=== PATIENT | male | born 1980 | race Caucasian/White ===

== ENCOUNTER 2016-07-25 17:52 | Emergency (ER) | payer OTHER ==
[2016-07-25 18:02] VITALS: BP 125/88; PULSE 71; TEMP 98.3; BMI 32.4
--- NOTE | 2016-07-25 19:23 | PDOC ---
History of Present Illness - General Chief Complaint: Eye Problem Stated Complaint: EYE PROBLEM Time Seen by Provider: 07/25/16 18:08 - History of Present Illness Initial Comments: 07/25/16 19:22 CHIEF COMPLAINT: swelling to L eye HISTORY OF PRESENT ILLNESS: 35 yo M with no PMH presents to [facility] with swelling to L eye s/p injury 2 days ago. 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 He states that the first day there was no swelling but he did rub his eye, and over the past two days the eye has become swollen, red, and painful, and he is "worried that I might have rubbed an infection into my eye." Denies change in vision but complains of pain on movement of L eye. PAST MEDICAL HISTORY: Denies past medical history FAMILY HISTORY: Denies SOCIAL HISTORY: Denies tobacco, alcohol, illicit drug use. SURGICAL HISTORY: Denies ALLERGIES: No known drug allergies REVIEW OF SYSTEMS General/Constitutional: Denies fever or chills. Denies weakness, weight change. HEENT: Swelling to L eye, "I can see fine but it hurts when I move my eye left and right." Denies ear pain or discharge. Denies sore throat. Cardiovascular: Denies chest pain or shortness of breath. Respiratory: Denies cough, wheezing, or hemoptysis. Gastrointestinal: Denies nausea, vomiting, diarrhea or constipation. Denies rectal bleeding. Genitourinary: Denies dysuria, frequency, or change in urination. Musculoskeletal: Denies joint or muscle swelling or pain. Denies neck or back pain. Skin and breasts: Denies rash or easy bruising. PHYSICAL EXAM General Appearance: Well-appearing, appropriately dressed. No apparent distress , no intoxication. HEENT: Tenderness on palpation to lateral orbital wall. Erythema and edema surrounding L eye. No change in vision, no diplopia, no blurred vision. normal voice, TMs normal, pharynx normal. No conjunctival pallor. Respiratory/Chest: Lungs CTAB. Cardiovascular: RRR. S1, S2. Integumentary: Appropriate color, dry, warm. No cyanosis, erythema, jaundice or rash Neurologic: sales/marketing II-XII intact. Fully oriented, alert. Appropriate mood/affect. Motor strength 5/5. No appreciable EOM palsy, facial droop or sensory deficit. 07/25/16 19:32 Past History - Past Medical History Allergies/Adverse Reactions: Allergies Allergy/AdvReac Type Severity Reaction Status Date / Time No Known Allergies Allergy Verified 07/25/16 18:03 Home Medications: Ambulatory Orders Azithromycin [Zithromax Tri-Arnav (3 DAYS) -] 500 mg PO DAILY #3 tablet 07/25/16 Oxycodone HCl 5 mg PO TID PRN #10 tablet MDD 3 07/25/16 - Psycho/Social/Smoking Cessation Hx Suicidal Ideation: No Smoking History: Current every day smoker Number of Cigarettes Smoked Daily: 20 Information on smoking cessation initiated: No Hx Alcohol Use: Yes (occasionally) Drug/Substance Use Hx: No *Physical Exam - Vital Signs Last Vital Signs Temp Pulse Resp BP Pulse Ox 98.3 F 71 18 125/88 97 07/25/16 17:57 07/25/16 17:57 07/25/16 17:57 07/25/16 17:57 07/25/16 17:57 ED Treatment Course - RADIOLOGY Radiology Studies Ordered: Category Date Time Status FACIAL BONES CT W/O CONTRAST [CT] Stat CT Scan 07/25/16 18:30 Taken HAND- LEFT [RAD] Stat Radiology 07/25/16 18:30 Taken Medical Decision Making - Medical Decision Making 07/25/16 20:39 35 yo M with hx of diverticulitis and GI bleed presents to fast track with periorbital edema s/p trauma to L eye 3 days ago. -Facial bone CT CT results: Left orbital medial wall slightly depressed fracture with partial opacification of the left ethmoid air cells. Intraorbital air is seen in medial aspect of the orbit, extraconal compartment. No abnormal attenuation or air is seen within the intraconal compartment. Moderate to marked left periorbital soft tissues swelling and air is present extending to the superior orbital margin. Discusssed case with attending MD Melendez. Will rx azithromycin and pain medication with close follow up with ophtho and ENT. Discussed case with MD Forman, who states he will see patient tomorrow morning. He also requests consult with ENT MD Harden. Patient states he has "had a lot of problems taking Naproxen and Tylenol after I had an operation for diverticulitis." Will rx oxycodone for pain. Advised patient to avoid any potential increase of ocular pressure,and to follow up with Drs. Forman and Dereck tomorrow morning; patient verbalized understanding and agrees to plan. 07/26/16 15:08 *DC/Admit/Observation/Transfer Diagnosis at time of Disposition: Medial orbital wall fracture Qualifiers: Encounter type: initial encounter Fracture type: closed Qualified Code(s): S02.80XA - Fracture of other specified skull and facial bones, unspecified side , initial encounter for closed fracture - Discharge Dispostion Disposition: HOME Condition at time of disposition: Stable Admit: No - Prescriptions Prescriptions: Oxycodone HCl 5 mg PO TID PRN #10 tablet MDD 3 PRN Reason: Pain Azithromycin [Zithromax Tri-Arnav (3 DAYS) -] 500 mg PO DAILY #3 tablet - Referrals Referrals: Camilo Jenkins [Primary Care Provider] - Go Harden MD [Staff Physician] - Arnold Forman [Staff Physician] - - Patient Instructions Printed Discharge Instructions: DI for Orbital Fracture Additional Instructions: Please take antibiotics as prescribed. As discussed, you MUST follow up with Drs. Bryan tomorrow; they have been notified and are expecting to see you tomorrow morning. If you need to sneeze or cough, please do so with your mouth open to avoid any increased pressure to your eye. Do not strain to move your bowels. If you experience any change in vision, inability to move your eye , increased swelling or pressure, or any new or worsening symptoms, please return to the ER. - Post Discharge Activity Work/School Note: Back to Work
== END 2016-07-25 20:57 | disposition home or self-care (01) ==
LOC: MERGE 17:52 → JERFT 17:52
DX: S02.32XA Fracture of orbital floor, left side, initial encounter for closed fracture (principal); W20.8XXA Other cause of strike by thrown, projected or falling object, initial encounter; Y93.H3 Activity, building and construction; Y92.61 Building [any] under construction as the place of occurrence of the external cause; Y99.0 Civilian activity done for income or pay
CPT/HCPCS: 70486-TC; 73130-TC-LT; 99281-25

== ENCOUNTER 2016-08-20 03:12 | Emergency (ER) | payer OTHER ==
[2016-08-20 03:38] VITALS: TEMP 97.8; BMI 32.5
[2016-08-20] MEDS ORDERED: OXYCODONE/APAP 5/325MG COMBO TABLET PO ONE (04:18)
[2016-08-20] MEDS ORDERED: OXYCODONE/APAP 5/325MG COMBO TABLET ONE (04:25)
--- NOTE | 2016-08-20 04:35 | PDOC ---
History of Present Illness - General Chief Complaint: Pain Stated Complaint: FACE HURTS Time Seen by Provider: 08/20/16 03:56 History Source: Patient Exam Limitations: No Limitations - History of Present Illness Initial Comments: 08/20/16 04:29 Patient is a 35 year old male with h/o asthma, with recent orbital fx sustained on 3 wks ago. He is scheduled for surgery on 08/28 but states had pain meds x 2 weeks, now taking Tylenol without relief of pain. Patient states has been taking Percocet 10mg. PMD: Dr. Hall PMHX: asthma, PSOCHX: cig 5/day, occ etoh, neg drugs FamHx: noncontributory ALL: NKDA GENERAL/CONSTITUTIONAL: [No fever or chills. No weakness. No weight change.] HEAD, EYES, EARS, NOSE AND THROAT: [No change in vision. No ear pain or discharge. No sore throat, (+) facial pain] CARDIOVASCULAR: [No chest pain or shortness of breath.] RESPIRATORY: [No cough, wheezing, or hemoptysis.] GASTROINTESTINAL: [No nausea, vomiting, diarrhea or constipation. No rectal bleeding.] GENITOURINARY: [No dysuria, frequency, or change in urination.] MUSCULOSKELETAL: [No joint or muscle swelling or pain. No neck or back pain.] SKIN AND BREASTS: [No rash or easy bruising.] NEUROLOGIC: [No headache, vertigo, loss of consciousness, or loss of sensation.] PSYCHIATRIC: [No depression or anxiety.] ENDOCRINE: [No increased thirst. No abnormal weight change.] HEMATOLOGIC/LYMPHATIC: [No anemia, easy bleeding, or history of blood clots.] ALLERGIC/IMMUNOLOGIC: [No hives or skin allergy. No latex allergy.] GENERAL: [The patient is awake, alert, and fully oriented, in no acute distress. ] HEAD: [Normal with no signs of trauma.] EYES: [Pupils equal, round and reactive to light, extraocular movements intact, (+) lid lag left eye, (+) tenderness to the left infraorbital medially and nasal bridge, sclera anicteric, conjunctiva clear.] ENT: [Ears normal, nares patent, oropharynx clear without exudates. Moist mucous membranes.] NECK: [Normal range of motion, supple without lymphadenopathy, JVD, or masses.] LUNGS: [Breath sounds equal, clear to auscultation bilaterally. No wheezes, and no crackles.] HEART: [Regular rate and rhythm, normal S1 and S2 without murmur, rub.] ABDOMEN: [Soft, nontender, normoactive bowel sounds. No guarding, no rebound. No masses.] EXTREMITIES: [Normal range of motion, no edema. No clubbing or cyanosis. No cords, erythema, or tenderness.] NEUROLOGICAL: [Cranial nerves II through XII grossly intact. Normal speech, normal gait.] PSYCH: [Normal mood, normal affect.] SKIN: [Warm, Dry, normal turgor, no rashes or lesions noted.] Past History - Past Medical History Allergies/Adverse Reactions: Allergies Allergy/AdvReac Type Severity Reaction Status Date / Time No Known Allergies Allergy Verified 01/24/16 22:46 Home Medications: Ambulatory Orders Oxycodone HCl/Acetaminophen [Percocet 10-325 mg Tablet] 1 each PO 5XD PRN #20 tablet MDD 6 08/20/16 Asthma: Yes - Immunization History Immunization Up to Date: Yes - Psycho/Social/Smoking Cessation Hx Suicidal Ideation: No Smoking History: Current every day smoker Have you smoked in the past 12 months: Yes Number of Cigarettes Smoked Daily: 5 Information on smoking cessation initiated: No 'Breaking Loose' booklet given: 08/20/16 Hx Alcohol Use: No Drug/Substance Use Hx: No Substance Use Type: None *Physical Exam - Vital Signs Last Vital Signs Temp Pulse Resp BP Pulse Ox 97.8 F 102 H 22 132/93 100 08/20/16 03:31 08/20/16 03:31 08/20/16 03:31 08/20/16 03:31 08/20/16 03:31 ED Treatment Course - Medications Given in the ED: ED Medications Discontinued Medications Generic Name Dose Route Start Last Admin Trade Name Freq PRN Reason Stop Dose Admin Oxycodone/Acetaminophen 2 combo 08/20/16 04:18 08/20/16 04:23 Percocet 5/325 - PO 08/20/16 04:19 2 combo ONCE ONE Administration Medical Decision Making - Medical Decision Making 08/20/16 04:35 Patient is a 35 year old male with h/o asthma, with recent orbital fx sustained on 3 wks ago. Will medicate with Percocet 5mg x 2 tabs Patient still c/o given Toradol 60mg IM 08/20/16 05:31 Patient states pressure pain in the face is resolving I discussed the physical exam findings, ancillary test results and final diagnoses with the patient. I answered all of the patient's questions. The patient was satisfied with the care received and felt comfortable with the discharge plan and treatment plan. The Patient agrees to follow up with the primary care physician within 24-72 hours. *DC/Admit/Observation/Transfer Diagnosis at time of Disposition: Facial pain - Discharge Dispostion Disposition: HOME Condition at time of disposition: Stable - Prescriptions Prescriptions: Oxycodone HCl/Acetaminophen [Percocet 10-325 mg Tablet] 1 each PO 5XD PRN #20 tablet MDD 6 PRN Reason: Severe Pain - Referrals Referrals: Camilo Jenkins [Primary Care Provider] - - Patient Instructions Printed Discharge Instructions: DI for Orbital Fracture Additional Instructions: Your Discharge Instructions: You must call primary care physician within 24 hours to arrange follow-up. Return to the Emergency Department with any new, persistent or worsening symptoms, for fever, chills, SOB, dizziness or any other concerning changes that may occur.
[2016-08-20] MEDS ORDERED: KETOROLAC TROMETHAMINE 30 MG/1 ML VIAL IM ONE (05:06)
[2016-08-20] MEDS ORDERED: KETOROLAC TROMETHAMINE 60 MG/2 ML VIAL ONE (05:09)
[2016-08-20 05:33] VITALS: BP 141/101; PULSE 96
== END 2016-08-20 05:34 | disposition home or self-care (01) ==
LOC: JER 03:12
PROC: 3E0233Z Introduction of Anti-inflammatory into Muscle, Percutaneous Approach (ICD-10-PCS; principal; 2016-08-20)
DX: G89.18 Other acute postprocedural pain (principal); Z87.81 Personal history of (healed) traumatic fracture
CPT/HCPCS: 96372; 99281-25

== ENCOUNTER 2016-08-29 06:14 | Day surgery (SDC) | payer OTHER ==
[2016-08-28 17:44] VITALS: BMI 32.5
--- NOTE | 2016-08-28 19:07 | PREOP ---
DATE OF ADMISSION: 06/29/2016 DATE OF SURGERY: 06/29/2016 ADMISSION DIAGNOSIS: Nasal septal fracture with displacement and nasal obstruction, inferior turbinate hypertrophy. HISTORY OF PRESENT ILLNESS: This 35-year-old male sustained blunt trauma to the face on July 24, 2016. He was working in his home when a metal drill fell off a ladder, and then bounced off stairs and struck his face. He sustained a left medial orbital wall fracture as well as nasal septal fracture. He was evaluated at [facility] emergency department, where CT scan demonstrated the fracture. He was discharged home. He had his eye evaluated and cleared by Dr. Arnold Forman. He has complained of severe nasal obstruction on the right side ever since the injury. Examination demonstrates a markedly displaced nasal septal fracture, and he is now brought to surgery for treatment. PAST MEDICAL HISTORY: Also includes nasal allergies which are worse in the springtime, and he has used Claritin D as needed. He has had a history of asthma and allergies. PAST SURGICAL HISTORY: Negative. PREVIOUS ANESTHESIA: None. BLEEDING HISTORY: Negative. FAMILY HISTORY: Negative for bleeding or anesthesia problems. ALLERGIES TO MEDICATIONS: None known. PRESENT MEDICATIONS: Include Qvar, Flovent, and oxycodone. Patient does have a history of intermittent smoking. PHYSICAL EXAMINATION: General: Patient is well developed male, in no acute distress. HEENT: Head is normal. Eyes are clear. Extraocular movements are intact and full. The nose has a relatively straight dorsum. Intranasal examination demonstrates a severely deviated nasal septum to the right with obstruction. There is moderate hypertrophy of the left inferior turbinate. The remainder of his head, neck examination is unremarkable. DATE: Preoperative labs are pending. CT scan of facial bones demonstrated marked deviation of the septum to the right side, inferior turbinate hypertrophy, as well as the medial orbital wall fracture on the left side. IMPRESSION: Acutely displaced nasal septal fracture with obstruction, left inferior turbinate hypertrophy. PLAN: Open reduction of nasal septal fracture, inferior turbinate resection. INFORMED CONSENT: Patient understands the indications, alternatives, nature of risks and benefits of proposed surgery. Potential complications including but not limited to anesthesia, bleeding, infection, numbness, hole in the septum, reduced sense of smell, some persistent deviation of septum, and recurrence were discussed in detail. He understands and accepts these risks and wishes to proceed with surgery. Questions were answered fully. TRACEY JOHNSON M.D. TANG/[id number] MTDD
[2016-08-29] MEDS ORDERED: LIDOCAINE 1%/EPI 1:100000 (50 ML MULTI DOSE VIAL) ONE (07:21)
[2016-08-29] MEDS ORDERED: COCAINE HCL 4% TOPICAL SOLUTION 4 ML BOTTLE TP ONE ×2 (07:22→08:34)
--- NOTE | 2016-08-29 08:08 | HP ---
History & Physical Update - History History: No Change - Physical Currently as noted:: left upper lid swelling, wheezing - Assessment Currently as noted:: asthma, suboptimal control; stye left upper lid - Plan Currently as noted:: preop breathing rx, outpt consult; warm compress left eye, f/u
[2016-08-29] MEDS ORDERED: ALBUTEROL SO4 0.5 % INH SOLN 2.5 MG/0.5 ML VIAL.NEB. NEB ONE (08:13)
[2016-08-29] MEDS ORDERED: ALBUTEROL SO4 0.083% IH SOL 2.5 MG/3 ML VIAL.NEB. NEB ONE (08:13)
[2016-08-29] MEDS ORDERED: ALBUTEROL SO4 2.5/IPRATROPIUM 0.5 INH SOL 3 ML VIAL.NEB. NEB ONE (08:15)
[2016-08-29] MEDS ORDERED: LIDOCAINE 1%/EPI 1:100000 (50 ML MULTI DOSE VIAL) INF ONE ×2 (08:34)
[2016-08-29] MEDS ORDERED: BACITRACIN 30 GM TUBE TOPICAL OINTMENT ONE (09:32)
[2016-08-29] MEDS ORDERED: TRIMETHOBENZAMIDE HCL 200MG/2ML INJ IM PRN (10:23)
[2016-08-29] MEDS ORDERED: oxyCODONE HCL 5 MG TABLET PO PRN (10:23)
[2016-08-29] MEDS ORDERED: LACTATED RINGERS SOLUTION 1,000 ML IV SCH ×2 (10:30→11:15)
--- NOTE | 2016-08-29 10:34 | OP ---
Operative Note - Note: Operative Date: 08/29/16 ([id number]) Pre-Operative Diagnosis: nasal septal fracture with severe displacement and airway obstruction. inferior turbinate hypertrophy Operation: open reduction of nasal septal fracture; submucous resection of left inferior turbinate; right inferior turbinate therapeutic outfracture Findings: nasal septal fracture severely deviated to the right with airway obstruction bony and cartilagenous, angulated maxillary crest, spur impacted floor of nose and right inferior turbinate left inferior turbinate hypertrophy with obstruction Implants: none Post-Operative Diagnosis: Same as Pre-op Surgeon: Go Harden Anesthesiologist/GLOBAL LEAD: Deniz Christian Anesthesia: General Specimens Removed: 1) nasal septal tissue, 2) left inferior turbinate tissue Estimated Blood Loss (mls): 15 Drains & Tubes with Location: none Blood Volume Replaced (mls): 0 Operative Report Dictated: Yes
[2016-08-29] MEDS ORDERED: ONDANSETRON 4 MG/2 ML VIAL IVPUSH PRN (11:07)
[2016-08-29] MEDS ORDERED: PROMETHAZINE HCL 25 MG/1 ML VIAL IVPUSH PRN (11:07)
--- NOTE | 2016-08-29 11:28 | OP ---
DATE OF OPERATION: 08/29/2016 PREOPERATIVE DIAGNOSES: Nasal septal fracture with severe displacement and airway obstruction, inferior turbinate hypertrophy. POSTOPERATIVE DIAGNOSES: Nasal septal fracture with severe displacement and airway obstruction, inferior turbinate hypertrophy. PROCEDURE: Open reduction of nasal septal fracture, submucous resection of left inferior turbinate, right inferior turbinate therapeutic fracture. SURGEON: Go Harden MD ANESTHESIOLOGIST: Aftab Christian MD ANESTHESIA: General via endotracheal tube. INDICATIONS: This 35-year-old male sustained blunt trauma to the face, sustaining left medial orbital wall fracture and nasal septal fracture. He developed significant nasal obstruction following his injury. His vision and eye were checked by an forgeman helper and no operative intervention is recommended for his medial orbital wall fracture. However, because of the severe nasal obstruction which is quite symptomatic he is now brought to surgery for treatment. FINDINGS: Nasal septal fracture with severe displacement to the right and airway obstruction, bony and cartilaginous, angulated maxillary crest, spur impacts the floor of the nose and the right inferior turbinate. Left inferior turbinate hypertrophy with obstruction. PROCEDURE: Patient was brought to the operating room and placed on the operating table in the supine position. General endotracheal anesthesia was induced to a satisfactory level. He was prepped and draped in the usual fashion for surgery. Nasal cavities were inspected. Severe nasal septal deviation to the right was observed. Nasal dorsum was relatively straight. The left nasal cavity was open, but inferior turbinate hypertrophy was seen. Lidocaine with epinephrine was infiltrated into the nasal septum and cocaine 4% pledgets were placed within the nasal cavities. The pledgets were removed. The nasal septum was inspected and the above findings noted. A left nasal septal incision was then created with a 15 blade and a left mucoperichondrial flap was elevated. There was severe angulation of the cartilage with the inferior portion being almost horizontal. The bony/cartilaginous junction was identified and and then bilateral mucoperiosteal flaps were elevated. Significant deviation of the bone to the right side was noted. Deviated bony septum was then removed with the Sher-[place]ola forceps and punch. Excess cartilage below the angulation was then removed with the [place] cartilage knife and the Claire elevator. Deviated maxillary crest was then removed with an osteotome. Hemostasis was achieved with electrocautery. A normal strut of cartilage was preserved for the dorsum and caudal septum. The remaining septum was then scored in a crosshatch fashion in order to release the spring. After these maneuvers, significant improvement in the position of the septum was achieved. Inferiorly, some of the mucosa had contracted around the inferior aspect of the previous spur and this could not be elevated to a more vertical position. A portion was removed with the endoscopic scissors in order to reduce the chance of postoperative synechia. Bone and cartilage were replaced in the pocket to reconstitute the 3rd layer. A tear in the mucosa from the deep concavity of the deformity was then repaired with interrupted chromic sutures. The incision was closed with 4-0 chromic. Attention was then turned to the inferior turbinates. The left inferior turbinate was enlarged. Lidocaine with epinephrine was infiltrated into the turbinate and then incision was created. Turbinate bone was isolated and then removed in a submucous fashion. Remaining turbinate tissue was then cauterized internally and interrupted sutures were used to close the incision. The right inferior turbinate was therapeutically outfractured. There was very thin but floppy inferior aspect. Patient does have a history of allergies. This was left undisturbed in order to minimize the chance of postoperative synechia. Hemostasis was excellent. Folded Telfa gauze was placed within each nasal cavity covered with antibiotic ointment. A moustache dressing was placed. Patient tolerated the procedure well. He was then awakened from general anesthesia and transferred to the PACU in stable condition. Estimated blood loss was 15 mL. He received crystalloid during the procedure. Specimens included nasal septal tissue and left inferior turbinate tissue and were sent to Pathology for routine study. There were no complications. GO HARDEN M.D. TANG/[id number]
[2016-08-29] MEDS ORDERED: oxyCODONE HCL 5 MG TABLET ONE (12:57)
[2016-08-29 14:13] VITALS: TEMP 98.2
[2016-08-29 17:51] VITALS: BP 130/84; PULSE 98
--- NOTE | 2016-08-30 13:27 | PATH ---
Surgical Pathology Report Patient Name: ISABEL ROGERS Med. Rec. #: [id number] /Age/Gender: 1980 (Age: 35) / M Account: [id number] Location: [facility] SURGICAL Taken: 08/29/2016 Received: 08/29/2016 Reported: 08/30/2016 Physicians: Go Harden M.D. Specimen(s) Received A: NASAL SEPTUM B: LEFT ANTERIOR TURBINATE Clinical History Hypertrophy of turbinates, nasal fracture Final Diagnosis A. NASAL SEPTUM, SEPTOPLASTY: BONE AND CARTILAGE WITHOUT SIGNIFICANT PATHOLOGIC CHANGES. FRAGMENTS OF SINONASAL MUCOSA WITH MILD CHRONIC INFLAMMATION AND FIBROSIS. B. LEFT ANTERIOR TURBINATE, RESECTION: FRAGMENT OF SCLEROTIC BONE AND SINONASAL MUCOSA WITH MILD CHRONIC INFLAMMATION AND FIBROSIS. Electronically Signed Tushar Suarez M.D. Gross Description A. Received in formalin labeled "nasal septum" is a 3.5 x 2.5 x 0.4 cm aggregate of morrow fragments of bone and cartilage. A commercial pest control representative portion is submitted in one cassette, following decalcification. B. Received in formalin labeled "left anterior turbinate" is a 1.3 x 1.0 x 0.3 cm portion of morrow-red soft tissue with possible attached cartilage and bone. The specimen is trisected and entirely submitted in one cassette, following decalcification. 08/29/201608/29/2016
== END 2016-08-29 15:00 | disposition home or self-care (01) ==
LOC: JASU-SURG 06:14
PROVIDERS: ATTEND Otolaryngology
PROC: 09TL7ZZ Resection of Nasal Turbinate, Via Natural or Artificial Opening (ICD-10-PCS; 2016-08-29)
PROC: 09SL7ZZ Reposition Nasal Turbinate, Via Natural or Artificial Opening (ICD-10-PCS; 2016-08-29)
PROC: 09SM0ZZ Reposition Nasal Septum, Open Approach (ICD-10-PCS; principal; 2016-08-29 08:00)
DX: S02.2XXA Fracture of nasal bones, initial encounter for closed fracture (principal); X58.XXXA Exposure to other specified factors, initial encounter; Y93.9 Activity, unspecified; Y92.009 Unspecified place in unspecified non-institutional (private) residence as the place of occurrence of the external cause; Y99.9 Unspecified external cause status; J34.3 Hypertrophy of nasal turbinates
CPT/HCPCS: 88302-TC; 88304-TC; 88311-TC; 94760

== ENCOUNTER 2016-11-26 17:36 | Emergency (ER) | payer OTHER ==
[2016-11-26 17:44] VITALS: BP 118/75; PULSE 100; TEMP 98; BMI 32.5
--- NOTE | 2016-11-26 19:36 | PDOC ---
History of Present Illness - General History Source: Patient Exam Limitations: No Limitations - History of Present Illness Initial Comments: 11/26/16 20:06 The patient is a 36 year old male with a past medical history of asthma(takes Qvar and ventolin daily in the mornings) who presents to the emergency department with a complaint of right eye redness, pain and swelling for two days. Patient woke up with the symptoms, denies any trauma. Patinet states the pain is mild. Pain is worse today since yesterday. Patient reports some tearing. Elli fever, chills. Denies visual changes. Denies drainage. Patient is self employed with computers Patient reports tobacoo use <Poli Lentz - Last Filed: 11/26/16 20:06> - General History Source: Patient Exam Limitations: No Limitations <Natacha Clayton - Last Filed: 11/26/16 20:19> - General Chief Complaint: Eye Problem Stated Complaint: EYE PROBLEM Past History <Poli Lentz - Last Filed: 11/26/16 20:06> - Travel Traveled outside of the country in the last 30 days: No Close contact w/someone who was outside of country & ill: No - Past Medical History Asthma: Yes (NO RECENT ATTACK) - Immunization History Immunization Up to Date: Yes - Psycho/Social/Smoking Cessation Hx Suicidal Ideation: No Smoking History: Current every day smoker Have you smoked in the past 12 months: Yes Number of Cigarettes Smoked Daily: 2 Information on smoking cessation initiated: No 'Breaking Loose' booklet given: 08/29/16 Hx Alcohol Use: Yes (OCCAS) Drug/Substance Use Hx: No Substance Use Type: Alcohol Hx Substance Use Treatment: No <Natacha Clayton - Last Filed: 11/26/16 20:19> - Past Medical History Allergies/Adverse Reactions: Allergies Allergy/AdvReac Type Severity Reaction Status Date / Time No Known Allergies Allergy Verified 11/26/16 17:44 Home Medications: Ambulatory Orders Albuterol Sulfate Inhaler - [Ventolin Hfa Inhaler -] 2 inh PO Q6H PRN 08/28/16 Beclomethasone Dipropionate [Qvar] 8.7 gm IH DAILY 08/28/16 Review of Systems - Review of Systems Able to Perform ROS?: Yes Constitutional: No: Chills, Fever HEENTM: Yes: See HPI, Other (eye redness, pain and swelling ) Respiratory: No: Symptoms reported Cardiac (ROS): No: Symptoms Reported ABD/GI: No: Symptoms Reported : No: Symptoms Reported Musculoskeletal: No: Symptoms Reported Integumentary: Yes: See HPI All Other Systems: Reviewed and Negative <Poli Lentz - Last Filed: 11/26/16 20:06> - Review of Systems Able to Perform ROS?: Yes Is the patient limited Latvian proficient: Yes Constitutional: Yes: Symptoms Reported, See HPI, Malaise HEENTM: No: Symptoms Reported Respiratory: Yes: Symptoms reported, See HPI <Sharlene Claytonorah - Last Filed: 11/26/16 20:19> *Physical Exam - Vital Signs Last Vital Signs Temp Pulse Resp BP Pulse Ox 98 F 100 H 18 118/75 98 11/26/16 17:39 11/26/16 17:39 11/26/16 17:39 11/26/16 17:39 11/26/16 17:39 - Physical Exam General Appearance: Yes: Appropriately Dressed, Mild Distress HEENT: positive: Pharynx Normal, Other ( right lid upper lid erythematous and edematous with worse pain and non pointing leision to lateral aspect of lid. Consistent with a Stye . No drainage ). negative: Normal ENT Inspection Neck: positive: Supple. negative: Lymphadenopathy (R), Lymphadenopathy (L) Respiratory/Chest: positive: Lungs Clear Cardiovascular: positive: Regular Rhythm, Regular Rate Gastrointestinal/Abdominal: positive: Soft. negative: Tender Musculoskeletal: positive: Normal Inspection Extremity: positive: Normal Inspection Integumentary: positive: Normal Color, Dry, Warm Neurologic: positive: Fully Oriented, Alert <Poli Lentz - Last Filed: 11/26/16 20:06> - Vital Signs Last Vital Signs Temp Pulse Resp BP Pulse Ox 98 F 100 H 18 118/75 98 11/26/16 17:39 11/26/16 17:39 11/26/16 17:39 11/26/16 17:39 11/26/16 17:39 - Physical Exam General Appearance: Yes: Appropriately Dressed, Apparent Distress <Sharlene Claytonorah - Last Filed: 11/26/16 20:19> Medical Decision Making - Medical Decision Making 11/26/16 20:19 The scribe's documentation has been prepared under my direction and personally reviewed by me in its entirety. I confirm that the note above accurately reflects all work, treatment, procedures, and medical decision making performed by me. <Natacha Clayton - Last Filed: 11/26/16 20:19> *DC/Admit/Observation/Transfer - Attestations Scribe Attestion: 11/26/16 20:14 Documentation prepared by Poli Lentz, acting as medical records technician for Emergency Dept ,Physician, CINNA[employer] GRINDER <Poli Lentz - Last Filed: 11/26/16 20:06> - Discharge Dispostion Admit: No <Natacha Clayton - Last Filed: 11/26/16 20:19> Diagnosis at time of Disposition: Hordeolum external Qualifiers: Laterality: right Eyelid: upper Qualified Code(s): H00.011 - Hordeolum externum right upper eyelid - Discharge Dispostion Disposition: HOME Condition at time of disposition: Stable - Referrals Referrals: Camilo Jenkins [Primary Care Provider] - Zev Lange [Staff Physician] - - Patient Instructions Printed Discharge Instructions: DI for Blepharitis Additional Instructions: Rest, avoid rubbing eyes Warm moist Soaks stye as often as possible until stye comes to head and drained May use erythromycin ointment to keep lid lubricated and eye lubricated Followup with ophthalmology or private physician as needed - Post Discharge Activity
[2016-11-26] MEDS ORDERED: ERYTHROMYCIN 0.5% OPHTHALMIC OINTMENT 3.5 GM TUBE ONE (20:06)
[2016-11-26] MEDS ORDERED: ERYTHROMYCIN 0.5% OPHTHALMIC OINTMENT 3.5 GM TUBE OS ONE (20:15)
== END 2016-11-26 20:22 | disposition home or self-care (01) ==
LOC: JERFT 17:36
DX: H00.011 Hordeolum externum right upper eyelid (principal)
CPT/HCPCS: 99281-25

== ENCOUNTER 2017-08-09 12:56 | Emergency (ER) | payer OTHER ==
[2017-08-09 13:09] VITALS: BMI 30.9
[2017-08-09] MEDS ORDERED: ACETAMINOPHEN 1000 MG/100 ML VIAL (NON FORMULARY) IVPB ONE (13:47)
[2017-08-09] MEDS ORDERED: SODIUM CHLORIDE 0.9% 1000 ML INFUS.BAG IV ONE (13:47)
--- NOTE | 2017-08-09 13:54 | PDOC ---
History of Present Illness - General Chief Complaint: Pain, Acute Stated Complaint: ABD PAIN Time Seen by Provider: 08/09/17 13:37 History Source: Patient Exam Limitations: No Limitations - History of Present Illness Initial Comments: 08/09/17 13:52 The patient is a 36M with a PMH of possible diverticulosis who presents to the ER with complaints of abdominal pain. The patient states that he has sharp, b/l upper quadrant pain and down his L anterior abdomen, which has been present for 2 days, and is intermittent. The pain is associated with a bout of bloody diarrhea which he had last night. He denies any fever, chills, nausea, vomiting. Past History - Past Medical History Allergies/Adverse Reactions: Allergies Allergy/AdvReac Type Severity Reaction Status Date / Time No Known Allergies Allergy Verified 08/09/17 13:05 Home Medications: Ambulatory Orders Albuterol Sulfate Inhaler - [Ventolin Hfa Inhaler -] 2 inh PO Q6H PRN 08/28/16 Beclomethasone Dipropionate [Qvar] 8.7 gm IH DAILY 08/28/16 Ciprofloxacin [Cipro (Restricted To Id)] 500 mg PO Q12H #14 tablet 08/09/17 Polyethylene Glycol 3350 [Miralax (For Daily Use) -] 17 gm PO DAILY #1 bottle metroNIDAZOLE [Flagyl -] 500 mg PO TID #21 tablet 08/09/17 Asthma: Yes (NO RECENT ATTACK) COPD: No DVT: No - Immunization History Immunization Up to Date: Yes - Suicide/Smoking/Psychosocial Hx Smoking History: Never smoked Have you smoked in the past 12 months: Yes Number of Cigarettes Smoked Daily: 2 Information on smoking cessation initiated: No 'Breaking Loose' booklet given: 08/29/16 Hx Alcohol Use: No Drug/Substance Use Hx: No Substance Use Type: Alcohol Hx Substance Use Treatment: No Review of Systems - Review of Systems Able to Perform ROS?: Yes Comments:: 08/09/17 14:20 GENERAL/CONSTITUTIONAL: No fever or chills. No weakness. HEAD, EYES, EARS, NOSE AND THROAT: No change in vision. No ear pain or discharge. No sore throat. CARDIOVASCULAR: No chest pain, palpitations, or lightheadedness. RESPIRATORY: No cough, wheezing, shortness of breath, or hemoptysis. GASTROINTESTINAL: Positive for abdominal pain. No nausea, vomiting, or constipation. GENITOURINARY: No dysuria, frequency, hematuria, or change in urination. MUSCULOSKELETAL: No joint or muscle swelling or pain. No neck or back pain. SKIN: No rash or lesions. NEUROLOGIC: No headache, numbness, tingling, weakness, loss of consciousness, or change in strength/sensation. ENDOCRINE: No increased thirst. No abnormal weight change. HEMATOLOGIC/LYMPHATIC: No anemia, easy bleeding, or history of blood clots. ALLERGIC/IMMUNOLOGIC: No hives or skin allergy. Is the patient limited Setswana proficient: No *Physical Exam - Vital Signs Last Vital Signs Temp Pulse Resp BP Pulse Ox 98.5 F 101 H 18 123/82 97 08/09/17 13:05 08/09/17 13:05 08/09/17 13:05 08/09/17 13:05 08/09/17 13:05 - Physical Exam Comments: 08/09/17 15:26 GENERAL: Well developed, well nourished. Awake and alert. No acute distress. HEENT: Normocephalic, atraumatic. Hearing grossly normal. Moist mucous membranes. PERRLA, EOMI. No conjunctival pallor. Sclera are non-icteric. NECK: Supple. Full ROM. CARDIOVASCULAR: Regular rate and rhythm. No murmurs, rubs, or gallops. PULMONARY: No evidence of respiratory distress. Lungs clear to auscultation bilaterally. No wheezing, rales or rhonchi. ABDOMINAL: Soft. Tenderness to deep palpation in LLQ. Non-distended. No rebound or guarding. GENITOURINARY: No CVA tenderness bilaterally. MUSCULOSKELETAL: Normal range of motion at all joints. No bony deformities or tenderness. EXTREMITIES: No cyanosis. No clubbing. No edema. No calf tenderness. SKIN: Warm and dry. Normal capillary refill. No rashes. No jaundice. NEUROLOGICAL: Alert, awake, appropriate. Cranial nerves 2-12 intact. Normal speech. Gait is normal without ataxia. PSYCHIATRIC: Cooperative. Good eye contact. Appropriate mood and affect. ED Treatment Course - LABORATORY CBC & Chemistry Diagram: 08/09/17 14:20 08/09/17 14:20 Medical Decision Making - Medical Decision Making 08/09/17 15:27 The patient is a 36M with a PMH of possible diverticulosis who presents with LLQ abdominal pain which he says feels like his previous diverticulosis. However , on review of his chart, he was never diagnosed with diverticulosis and had a negative CT in 2016. As this is a repeat abdominal pain with focal tenderness, I will order labs and a CTAP with IV to r/o diverticulosis/itis. Pending labs and imaging. 08/09/17 18:26 CBC and CMP WNL. Slight transaminitis. All findings, prognosis, strict return instructions, and importance of prompt follow up discussed with patient. I have answered all of the patients questions. Will d/c home with cipro/flagyll and miralax. Pt tolerated PO and agrees to f/u with PCP and GI, Dr. Green. *DC/Admit/Observation/Transfer Diagnosis at time of Disposition: Abdominal pain Qualifiers: Abdominal location: left lower quadrant Qualified Code(s): R10.32 - Left lower quadrant pain - Discharge Dispostion Disposition: HOME Condition at time of disposition: Stable Decision to Admit order: No - Prescriptions Prescriptions: Ciprofloxacin [Cipro (Restricted To Id)] 500 mg PO Q12H #14 tablet metroNIDAZOLE [Flagyl -] 500 mg PO TID #21 tablet Polyethylene Glycol 3350 [Miralax (For Daily Use) -] 17 gm PO DAILY #1 bottle - Referrals - Patient Instructions Printed Discharge Instructions: DI for Colitis Additional Instructions: Please follow up with your primary care physician in 2-3 days. Please follow up with Dr. Green, the GI doctor, early next week. Please return to the ER if you have any signs or symptoms of chest pain, shortness of breath, uncontrollable fever, chills, nausea, vomiting, numbness, tingling, or weakness in any part of your body, changes in vision, or slurred speech. Please take your medications as prescribed. Please return to the ER if symptoms persist, worsen, or new symptoms arise. - Post Discharge Activity
[2017-08-09] MEDS ORDERED: ACETAMINOPHEN INJECTION 100 ML IVPB ONE (14:05)
[2017-08-09 14:26] LABS: BASO % 0.9 % (0-2.0); EOS % 7.6 % (0-4.5); HEMATOCRIT 47.8 % (35.4-49); HEMOGLOBIN 16.7 GM/dL (11.7-16.9); LYMPH % 27.4 % (8-40); MCH 30.7 pg (25.7-33.7); MCHC 34.9 g/dl (32.0-35.9); MEAN CELL VOLUME 88.2 fl (80-96); MEAN PLT VOLUME 8.1 fl (7.5-11.1); MONO % 6.5 % (3.8-10.2); NEUT % 57.6 % (42.8-82.8); PLATELET COUNT 290 K/MM3 (134-434); RBC 5.42 M/mm3 (4.00-5.60); WHITE BLOOD COUNT 8.6 K/mm3 (4.0-10.0)
[2017-08-09 15:04] LABS: ALBUMIN 3.8 g/dl (3.4-5.0); ANION GAP 8 (8-16); BLOOD UREA NITROGEN 8 mg/dL (7-18); CALCIUM 8.3 mg/dL (8.5-10.1); CHLORIDE 111 mmol/L (98-107); CO2 21 mmol/L (21-32); CREATININE 0.8 mg/dL (0.7-1.3); GLUCOSE,RANDOM 95 mg/dL (74-106); SGPT/ALT 80 U/L (12-78); SODIUM 140 mmol/L (136-145)
[2017-08-09 15:06] LABS: ALK PHOS 70 U/L (45-117); BILIRUBIN,TOTAL 0.4 mg/dL (0.2-1.0); TOT PROT 7.2 g/dl (6.4-8.2)
[2017-08-09 15:12] LABS: URINE APPEARANCE CLEAR; URINE BILIRUBIN NEGATIVE (<2.0 mg/dL); URINE COLOR YELLOW; URINE GLUCOSE (UA) NEGATIVE (NEGATIVE); URINE KETONE NEGATIVE (NEGATIVE); URINE LEUK ESTERASE NEGATIVE (NEGATIVE); URINE NITRITE NEGATIVE (NEGATIVE); URINE PROTEIN NEGATIVE (NEGATIVE); URINE UROBILINOGEN NEGATIVE mg/dL (0.2-1.0)
[2017-08-09 15:15] LABS: SGOT/AST 41 U/L (15-37)
--- NOTE | 2017-08-09 16:33 | PDOC ---
Attending Attestation - HPI HPI: 08/09/17 16:35 The patient is a 36 year old male, with a significant PMH of possible diverticulosis, who presents to the emergency department with 2 days of bilateral upper quadrant abdominal pain. The patient reports the abdominal pain as a sharp pain that is present in the bilateral upper quadrants and radiates down the left side of his abdomen. The patient states he had one episode of bloody diarrhea. The patient states he has had a similar episode of the same complaints approx. 2 years ago but is unsure of the diagnosis at that time. The patient denies chest pain, shortness of breath, fever, chills, headache and dizziness. Denies dysuria, frequency, urgency and hematuria. Allergies: NKA - Physicial Exam PE: 08/09/17 16:35 Vitals: Triage vital signs reviewed General Appearance: No acute distress, well nourished, well developed Head: Atraumatic Eyes: Pupils equal reactive round, extraocular movement intact Ears: TM's normal bilaterally Nose: Nares patent bilaterally; no nasal congestion Throat: Posterior oropharynx without erythema, mucous membranes moist Neck: Supple; No nuchal rigidity Chest Wall: Nontender Cardiac: Regular rate and rhythm, no murmurs, no rubs, no gallops Lungs: Clear to auscultation bilateral, good air movement bilaterally Abdomen: (+) Left lower quadrant tenderness. No guarding or rebound. Soft, nondistended, normal bowel sounds, Testicular exam: Normal Rectal: Exam deferred Extremities: Full range of motion to all extremities, no cyanosis, clubbing, or edema Skin: Warm and dry, no rashes or lesions, no rash, no petechiae Neuro: AOX3; Cranial Nerves 2-12 grossly intact, Strength intact to all extremities, Sensation intact to all extremities. Psych: Normal mood, normal affect - Medical Decision Making 08/09/17 16:35 The patient is a 36 year old male, with a significant PMH of possible diverticulosis, who presents to the emergency department with 2 days of bilateral upper quadrant abdominal pain and 1 episode of bloody diarrhea. Plan: Labs, Meds, Abdomen and Pelvis CT scan w/ contrast Documentation prepared by Haja Javier, acting as medical i d sales for Ac Chan MD. <Haja Javier - Last Filed: 08/09/17 16:35> - Resident Resident Name: Scotty Qureshi - ED Attending Attestation I have performed the following: I have examined & evaluated the patient, The case was reviewed & discussed with the resident, I agree w/resident's findings & plan, Exceptions are as noted - Medical Decision Making CT findings as dictated sigmoid colitis. Discussed with patient inpatient management versus outpatient management. Given that patient's pain is well- controlled is tolerating fluids by mouth patient prefer a trial of by mouth antibiotics as an outpatient. Patient provided with GI follow-up Findings, need for follow-up and strict return instructions discussed with patient. <Ac Chan - Last Filed: 08/09/17 19:47>
[2017-08-09 17:23] VITALS: BP 129/87; PULSE 62; TEMP 97.6
== END 2017-08-09 18:53 | disposition home or self-care (01) ==
LOC: JER 12:56
PROC: 3E033NZ Introduction of Analgesics, Hypnotics, Sedatives into Peripheral Vein, Percutaneous Approach (ICD-10-PCS; principal; 2017-08-09)
DX: K52.9 Noninfective gastroenteritis and colitis, unspecified (principal)
CPT/HCPCS: 36415; 74177-TC; 80053; 81003; 85025; 96374; 99282-25; J0131; J7030

== ENCOUNTER 2019-04-02 20:21 | Emergency (ER) | payer OTHER ==
[2019-04-02 20:54] VITALS: BP 138/84; PULSE 109; TEMP 98.7; BMI 34.3
[2019-04-02] MEDS ORDERED: ACETAMINOPHEN 1000 MG/100 ML VIAL (NON FORMULARY) IVPB ONE (23:25)
--- NOTE | 2019-04-02 23:29 | PDOC ---
History of Present Illness - General Chief Complaint: Pain Stated Complaint: ABD PAIN Time Seen by Provider: 04/02/19 23:24 - History of Present Illness Initial Comments: 04/02/19 23:29 38 yo M PMH sigmoid colitis in July 2017, reported irritable bowel syndrome, presenting with RLQ and LLQ abdominal pain. Began after New Years, when he drank 7 mixed drinks. Had been taking dicyclomine 10mg BID with relief but ran out. Denies CP, SOB, fevers/chills, GERMAN, N/V, constipation/diarrhea, rectal bleeding. Past History - Past Medical History Allergies/Adverse Reactions: Allergies Allergy/AdvReac Type Severity Reaction Status Date / Time No Known Allergies Allergy Verified 08/09/17 13:05 Home Medications: Ambulatory Orders Albuterol Sulfate Inhaler - [Ventolin Hfa Inhaler -] 2 inh PO Q6H PRN 08/28/16 Beclomethasone Dipropionate [Qvar] 8.7 gm IH DAILY 08/28/16 Ciprofloxacin [Cipro (Restricted To Id)] 500 mg PO Q12H #14 tablet 08/09/17 Polyethylene Glycol 3350 [Miralax (For Daily Use) -] 17 gm PO DAILY #1 bottle metroNIDAZOLE [Flagyl -] 500 mg PO TID #21 tablet 08/09/17 Ciprofloxacin [Cipro (Restricted To Id)] 500 mg PO BID #14 tablet 04/03/19 Ciprofloxacin [Cipro (Restricted To Id)] 500 mg PO BID #14 tablet 04/03/19 Metronidazole 500 mg PO TID #21 tablet 04/03/19 Oxycodone HCl/Acetaminophen [Percocet 5-325 mg Tablet] 1 tab PO Q4H PRN #5 tablet MDD 5 04/03/19 metroNIDAZOLE [Flagyl -] 500 mg PO TID #21 tablet 04/03/19 Asthma: Yes (NO RECENT ATTACK) COPD: No DVT: No GI Disorders: Yes (IBS, Colitis) - Immunization History Immunization Up to Date: Yes - Psycho Social/Smoking Cessation Hx Smoking History: Never smoked Have you smoked in the past 12 months: Yes Number of Cigarettes Smoked Daily: 2 'Breaking Loose' booklet given: 08/29/16 Hx Alcohol Use: No Drug/Substance Use Hx: No Substance Use Type: Alcohol Hx Substance Use Treatment: No Review of Systems - Review of Systems Comments:: 04/02/19 23:31 GENERAL/CONSTITUTIONAL: No fever or chills. No weakness. HEAD, EYES, EARS, NOSE AND THROAT: No change in vision. No ear pain or discharge. No sore throat. CARDIOVASCULAR: No chest pain or shortness of breath. RESPIRATORY: No cough, wheezing, or hemoptysis. GASTROINTESTINAL: No nausea, vomiting, diarrhea or constipation. Abdominal pain. GENITOURINARY: No dysuria, frequency, or change in urination. MUSCULOSKELETAL: No joint or muscle swelling or pain. No neck or back pain. SKIN: No rash NEUROLOGIC: No headache, vertigo, loss of consciousness, or change in strength/ sensation. ENDOCRINE: No increased thirst. No abnormal weight change. HEMATOLOGIC/LYMPHATIC: No anemia, easy bleeding, or history of blood clots. ALLERGIC/IMMUNOLOGIC: No hives or skin allergy *Physical Exam - Vital Signs Last Vital Signs Temp Pulse Resp BP Pulse Ox 98.7 F 109 H 19 138/84 96 04/02/19 20:50 04/02/19 20:50 04/02/19 20:50 04/02/19 20:50 04/02/19 20:50 - Physical Exam 04/02/19 23:32 Gen: well-developed, well-nourished, in moderate distress Neuro: AAOX4, CN II-XII intact, FTN intact, EOMI, PERRLA, 5/5 strength, SILT HEENT: atraumatic, normocephalic, dry mucous membranes Neck: trachea midline, supple CV: regular rate, regular rhythm, no murmurs, rubs, or gallops Pulm: CTA b/l, no wheezing Abd: soft, non-distended, RLQ and LLQ tenderness MSK: full ROM, intact pulses Extr: no edema, no deformities Skin: warm, dry ED Treatment Course - LABORATORY CBC & Chemistry Diagram: 04/02/19 23:35 04/02/19 23:35 - RADIOLOGY Radiology Studies Ordered: Category Date Time Status ABDOMEN & PELVIS CT WITH CONTR [CT] Stat CT Scan 04/02/19 23:28 Ordered Medical Decision Making - Medical Decision Making 04/02/19 23:33 Concern for colitis vs diverticulitis vs appendicitis. - CBC, CMP, lipase - UA/UC - CT abd/pelvis w/ contrast Discharge - Discharge Information Problems reviewed: Yes Clinical Impression/Diagnosis: Diverticulitis Condition: Good Disposition: HOME - Additional Discharge Information Prescriptions: Ciprofloxacin [Cipro (Restricted To Id)] 500 mg PO BID #14 tablet Ciprofloxacin [Cipro (Restricted To Id)] 500 mg PO BID #14 tablet Metronidazole 500 mg PO TID #21 tablet metroNIDAZOLE [Flagyl -] 500 mg PO TID #21 tablet Oxycodone HCl/Acetaminophen [Percocet 5-325 mg Tablet] 1 tab PO Q4H PRN #5 tablet MDD 5 PRN Reason: Pain Level 6-10 - Follow up/Referral - Patient Discharge Instructions Patient Printed Discharge Instructions: DI for Diverticulitis Additional Instructions: You were seen today in the ED for abdominal pain and found to have diverticulitis. Please call your primary care doctor tomorrow to setup a follow up appointment. Please return to the ED if you have any new, worsening or concerning symptoms, especially increasing pain, fever, and vomiting. Please take your antibiotics until the entire prescription is completed, even if you start to feel better. - Post Discharge Activity Work/Back to School Note: Back to Work
--- NOTE | 2019-04-02 23:32 | PDOC ---
Attending Attestation - Resident Resident Name: Darek Toledo - ED Attending Attestation I have performed the following: I have examined & evaluated the patient, The case was reviewed & discussed with the resident, I agree w/resident's findings & plan, Exceptions are as noted
[2019-04-02] MEDS ORDERED: ACETAMINOPHEN INJECTION 100 ML IVPB ONE (23:41)
[2019-04-02 23:57] LABS: BASO % 0.9 % (0-2.0); EOS % 3.5 % (0-4.5); HEMATOCRIT 50.8 % (35.4-49); LYMPH % 18.4 % (8-40); MCH 29.5 pg (25.7-33.7); MCHC 33.5 g/dl (32.0-35.9); MEAN CELL VOLUME 88.1 fl (80-96); MEAN PLT VOLUME 7.9 fl (7.5-11.1); MONO % 4.8 % (3.8-10.2); NEUT % 72.4 % (42.8-82.8); PLATELET COUNT 320 K/MM3 (134-434); RBC 5.77 M/mm3 (4.00-5.60); RDW 13.3 % (11.9-15.9); WHITE BLOOD COUNT 13.2 K/mm3 (4.0-10.0)
[2019-04-03 00:38] LABS: ALBUMIN 3.8 g/dl (3.4-5.0); BILIRUBIN,TOTAL 0.5 mg/dL (0.2-1); BLOOD UREA NITROGEN 11.3 mg/dL (7-18); CREATININE 0.9 mg/dL (0.55-1.3); POTASSIUM 3.9 mmol/L (3.5-5.1); TOT PROT 7.7 g/dl (6.4-8.2)
--- NOTE | 2019-04-03 00:57 | PDOC ---
*Physical Exam - Vital Signs Last Vital Signs Temp Pulse Resp BP Pulse Ox 98.7 F 109 H 19 138/84 96 04/02/19 20:50 04/02/19 20:50 04/02/19 20:50 04/02/19 20:50 04/02/19 20:50 ED Treatment Course - LABORATORY CBC & Chemistry Diagram: 04/02/19 23:35 04/02/19 23:35 - ADDITIONAL ORDERS Additional order review: Laboratory Results 04/02/19 04/02/19 23:35 23:35 Sodium 139 Potassium 3.9 Chloride 107 Carbon Dioxide 24 Anion Gap 9 BUN 11.3 Creatinine 0.9 Est GFR (CKD-EPI)AfAm 124.26 Est GFR (CKD-EPI)NonAf 107.21 Random Glucose 149 H Calcium 9.0 Total Bilirubin 0.5 AST 21 ALT 47 Alkaline Phosphatase 94 Total Protein 7.7 Albumin 3.8 Lipase 117 04/02/19 23:35 RBC 5.77 H MCV 88.1 MCHC 33.5 RDW 13.3 MPV 7.9 Neutrophils % 72.4 Lymphocytes % 18.4 D Monocytes % 4.8 Eosinophils % 3.5 Basophils % 0.9 - Medications Given in the ED: ED Medications Discontinued Medications Generic Name Dose Route Start Last Admin Trade Name Freq PRN Reason Stop Dose Admin Acetaminophen 1,000 mg 04/02/19 23:25 04/02/19 23:50 Ofirmev Injection - IVPB 04/02/19 23:26 1,000 mg ONCE ONE Administration Medical Decision Making - Medical Decision Making 04/03/19 00:[address] Toledo. Patient is 38M here today with lower abdominal pain. Pending labs and ct scan. CBC, CMP reassuring. CT shows acute uncomplicated diverticulitis. Will discharge home on cipro/ flagyl. Patient has PCP follow up available, will make appointment tomorrow morning for next few days. Patient's pain is under control, can tolerate PO. Safe for discharge. Return precautions given. Will discharge home with 5 percocet. Discharge - Discharge Information Problems reviewed: No Clinical Impression/Diagnosis: Diverticulitis Condition: Good Disposition: HOME - Admission No - Follow up/Referral - Patient Discharge Instructions Patient Printed Discharge Instructions: DI for Diverticulitis Additional Instructions: You were seen today in the ED for abdominal pain and found to have diverticulitis. Please call your primary care doctor tomorrow to setup a follow up appointment. Please return to the ED if you have any new, worsening or concerning symptoms, especially increasing pain, fever, and vomiting. Please take your antibiotics until the entire prescription is completed, even if you start to feel better. - Post Discharge Activity Work/Back to School Note: Back to Work
[2019-04-03] MEDS ORDERED: CIPROFLOXACIN 500 MG TABLET (RESTRICTED TO ID) PO ONE (01:49)
[2019-04-03] MEDS ORDERED: metroNIDAZOLE 500 MG TABLET PO ONE (01:49)
[2019-04-03] MEDS ORDERED: metroNIDAZOLE 250 MG TABLET ONE (01:55)
== END 2019-04-03 02:05 | disposition home or self-care (01) ==
LOC: JER 20:21
PROC: 3E033NZ Introduction of Analgesics, Hypnotics, Sedatives into Peripheral Vein, Percutaneous Approach (ICD-10-PCS; principal; 2019-04-02)
DX: K57.92 Diverticulitis of intestine, part unspecified, without perforation or abscess without bleeding (principal)
CPT/HCPCS: 36415; 74177-TC; 80053; 83690; 85025; 86850; 86900; 86901; 99282-25; J0131

== ENCOUNTER 2020-11-06 15:30 | Emergency (ER) | payer OTHER ==
[2020-11-06 15:34] VITALS: BP 130/89; PULSE 101; TEMP 97; BMI 34.4
== END 2020-11-06 16:45 | disposition home or self-care (01) ==
LOC: JERFT 15:30
DX: H66.90 Otitis media, unspecified, unspecified ear (principal)
CPT/HCPCS: 99283-25

== ENCOUNTER 2021-08-06 15:22 | Emergency (ER) | payer OTHER ==
[2021-08-06 15:34] VITALS: BP 133/93; PULSE 101; TEMP 98.8; BMI 36.0
[2021-08-06] MEDS ORDERED: diphenhydrAMINE HCL 25 MG CAPSULE (FP) PO ONE ×2 (15:38→15:47)
[2021-08-06] MEDS ORDERED: DEXAMETHASONE SOD PHOSPHATE 10 MG/1 ML VIAL IM ONE (15:38)
[2021-08-06] MEDS ORDERED: DEXAMETHASONE SOD PHOSPHATE 10 MG/1 ML VIAL ONE (15:47)
== END 2021-08-06 16:08 | disposition home or self-care (01) ==
LOC: JER 15:22 → JERFT 15:22
PROC: 3E023GC Introduction of Other Therapeutic Substance into Muscle, Percutaneous Approach (ICD-10-PCS; principal; 2021-08-06)
DX: L23.7 Allergic contact dermatitis due to plants, except food (principal)
CPT/HCPCS: 99284-25; J1100

== ENCOUNTER 2021-09-26 21:02 | Emergency (ER) | payer OTHER ==
[2021-09-26 21:15] VITALS: BP 147/88; PULSE 106; TEMP 98.6; BMI 34.3
[2021-09-26] MEDS ORDERED: diazePAM 5 MG TABLET PO ONE (23:28)
[2021-09-26] MEDS ORDERED: KETOROLAC TROMETHAMINE 30 MG/1 ML VIAL IM ONE (23:28)
[2021-09-27] MEDS ORDERED: KETOROLAC TROMETHAMINE 30 MG/1 ML VIAL ONE (01:07)
[2021-09-27] MEDS ORDERED: diazePAM 5 MG TABLET ONE (01:07)
== END 2021-09-27 02:47 | disposition home or self-care (01) ==
LOC: JER 21:02
PROC: 3E0233Z Introduction of Anti-inflammatory into Muscle, Percutaneous Approach (ICD-10-PCS; principal; 2021-09-26)
DX: S09.90XA Unspecified injury of head, initial encounter (principal); S39.012A Strain of muscle, fascia and tendon of lower back, initial encounter; V49.50XA Passenger injured in collision with unspecified motor vehicles in traffic accident, initial encounter
CPT/HCPCS: 70450-TC; 72050-TC-FY; 72070-TC-FY; 99285-25

== ENCOUNTER 2022-02-08 21:53 | Emergency (ER) | payer OTHER ==
[2022-02-08 21:58] VITALS: BP 138/91; PULSE 86; RESP 18; TEMP 97.5; BMI 35.3
[2022-02-08] MEDS ORDERED: SODIUM CHLORIDE 0.9% 500 ML INFUS.BAG IV ONE (22:55)
[2022-02-08] MEDS ORDERED: ACETAMINOPHEN 1000 MG/100 ML BAG IVPB ONE (22:55)
[2022-02-08] MEDS ORDERED: ACETAMINOPHEN INJECTION 100 ML IVPB ONE (23:01)
[2022-02-08 23:18] LABS: EOS % 3.6 % (0-4.5); HEMATOCRIT 46.6 % (35.4-49); HEMOGLOBIN 15.9 GM/dL (11.7-16.9); LYMPH % 25.3 % (8-40); MCH 29.5 pg (25.7-33.7); MCHC 34.1 g/dl (32.0-35.9); MEAN CELL VOLUME 86.5 fl (80-96); MEAN PLT VOLUME 7.4 fl (7.5-11.1); MONO % 8.2 % (3.8-10.2); NEUT % 61.9 % (42.8-82.8); PLATELET COUNT 326 10^3/uL (134-434); RBC 5.39 M/mm3 (4.00-5.60); RDW 13.7 % (11.9-15.9); WHITE BLOOD COUNT 13.4 K/mm3 (4.0-10.0)
[2022-02-08 23:29] LABS: INR 1.09 (0.83-1.09); PROTHROMBIN TIME (PATIENT) 12.6 SEC (9.7-13.0)
[2022-02-08 23:32] LABS: ACTIVATED PTT 31.9 SECONDS (25.2-36.5)
[2022-02-08 23:42] LABS: ALBUMIN 3.8 g/dl (3.4-5.0); BLOOD UREA NITROGEN 14.5 mg/dL (7-18); CALCIUM 8.8 mg/dL (8.5-10.1); MAGNESIUM 2.2 mg/dL (1.8-2.4)
[2022-02-08 23:45] LABS: CREATININE 0.9 mg/dL (0.55-1.3)
[2022-02-08 23:47] LABS: BILIRUBIN,TOTAL 0.4 mg/dL (0.2-1); TOT PROT 7.3 g/dl (6.4-8.2)
[2022-02-09 01:16] LABS: URINE APPEARANCE CLEAR; URINE BILIRUBIN NEGATIVE (NEGATIVE); URINE COLOR YELLOW; URINE GLUCOSE (UA) NEGATIVE (NEGATIVE); URINE KETONE TRACE (NEGATIVE); URINE LEUK ESTERASE NEGATIVE (NEGATIVE); URINE NITRITE NEGATIVE (NEGATIVE); URINE PROTEIN NEGATIVE (NEGATIVE); URINE UROBILINOGEN 0.2 mg/dL (0.2-1.0)
[2022-02-09] MEDS ORDERED: KETOROLAC TROMETHAMINE 15 MG/ML VIAL IVPUSH ONE (01:38)
[2022-02-09] MEDS ORDERED: KETOROLAC TROMETHAMINE 15 MG/ML VIAL ONE (01:45)
== END 2022-02-09 02:21 | disposition home or self-care (01) ==
LOC: JER 21:53
PROC: 3E033GC Introduction of Other Therapeutic Substance into Peripheral Vein, Percutaneous Approach (ICD-10-PCS; principal; 2022-02-08)
DX: K57.92 Diverticulitis of intestine, part unspecified, without perforation or abscess without bleeding (principal)
CPT/HCPCS: 0241U-QW; 36415; 74177-TC; 80053; 81003; 83735; 85025; 85610; 85730; 86850; 86900; 86901; 87086; 99285-25; Q9967

== ENCOUNTER 2022-10-21 23:31 | Emergency (ER) | payer OTHER ==
[2022-10-21 23:40] VITALS: RESP 18; BMI 34.3
[2022-10-22] MEDS ORDERED: ACETAMINOPHEN 500 MG TABLET (FP) PO ONE (04:38)
[2022-10-22] MEDS ORDERED: DIPHTH,PERTUSS(ACELL),TET 0.5 ML DISP.SYRIN IM ONE ×2 (04:38→05:11)
[2022-10-22] MEDS ORDERED: ACETAMINOPHEN 325 MG TABLET (FP) ONE (05:11)
[2022-10-22] MEDS ORDERED: BACITRACIN ZINC 15 GM TUBE TOPICAL OINTMENT ONE (08:39)
[2022-10-22 08:49] VITALS: BP 139/95; PULSE 69; TEMP 97.5
== END 2022-10-22 08:53 | disposition home or self-care (01) ==
LOC: JER 23:31
PROC: 0HQGXZZ Repair Left Hand Skin, External Approach (ICD-10-PCS; principal; 2022-10-21)
PROC: 3E0234Z Introduction of Serum, Toxoid and Vaccine into Muscle, Percutaneous Approach (ICD-10-PCS; 2022-10-22)
DX: S61.211A Laceration without foreign body of left index finger without damage to nail, initial encounter (principal); R20.2 Paresthesia of skin; W25.XXXA Contact with sharp glass, initial encounter
CPT/HCPCS: 12001-25; 73140-TC-LT-FY; 90471; 90715; 99283-25

== ENCOUNTER 2022-11-12 21:03 | Emergency (ER) | payer OTHER ==
[2022-11-12 21:06] VITALS: BP 130/85; PULSE 100; RESP 18; TEMP 98; BMI 34.3
== END 2022-11-12 21:53 | disposition home or self-care (01) ==
LOC: JERFT 21:03
DX: M79.645 Pain in left finger(s) (principal); Z48.02 Encounter for removal of sutures
CPT/HCPCS: 73140-TC-LT-FY; 99283-25

== ENCOUNTER 2024-04-28 09:51 | Emergency (ER) | payer OTHER ==
[2024-04-28 09:59] VITALS: BP 134/86; PULSE 93; RESP 20; TEMP 97.9; BMI 36.0
[2024-04-28] MEDS ORDERED: ACETAMINOPHEN INJECTION 100 ML ONE (10:41)
[2024-04-28] MEDS: ACETAMINOPHEN 1000 MG/100 ML BAG IVPB ONE (10:55)
[2024-04-28] MEDS: SODIUM CHLORIDE 1,000 ML IV STA (10:55)
[2024-04-28 10:59] LABS: EOS % 4.6 % (0-4.5); HEMATOCRIT 53.1 % (35.4-49); LYMPH % 23.4 % (8-40); MCH 29.4 pg (25.7-33.7); MEAN CELL VOLUME 86.5 fl (80-96); MEAN PLT VOLUME 7.4 fl (7.5-11.1); MONO % 8.3 % (3.8-10.2); NEUT % 62.7 % (42.8-82.8); PLATELET COUNT 348 10^3/uL (134-434); RBC 6.14 M/mm3 (4.00-5.60); RDW 13.6 % (11.9-15.9); WHITE BLOOD COUNT 11.1 K/mm3 (4.0-10.0)
[2024-04-28 11:03] LABS: EPI CELLS 6 /uL (0-25.1); HYALINE CASTS 3 /uL (0-3.1); URINE APPEARANCE CLEAR; URINE BACTERIA 18 /uL (0-1359); URINE BILIRUBIN NEGATIVE (NEGATIVE); URINE COLOR DK YELLOW; URINE GLUCOSE (UA) NEGATIVE (NEGATIVE); URINE KETONE TRACE (NEGATIVE); URINE LEUK ESTERASE NEGATIVE (NEGATIVE); URINE NITRITE NEGATIVE (NEGATIVE); URINE PROTEIN 1+ (NEGATIVE); URINE RBC 16 /uL (0-23.9); URINE UROBILINOGEN 0.2 mg/dL (0.2-1.0); URINE WBC 15 /uL (0-25.8)
[2024-04-28 11:23] LABS: POTASSIUM 4.2 mmol/L (3.5-5.1)
[2024-04-28 11:25] LABS: CALCIUM 9.3 mg/dL (8.5-10.1)
[2024-04-28 11:26] LABS: BLOOD UREA NITROGEN 10.8 mg/dL (7-18)
[2024-04-28 11:29] LABS: CREATININE 0.9 mg/dL (0.55-1.3)
[2024-04-28 11:30] LABS: BILIRUBIN,TOTAL 0.6 mg/dL (0.2-1); TOT PROT 7.5 g/dl (6.4-8.2)
== END 2024-04-28 14:40 | disposition home or self-care (01) ==
LOC: JER 09:51
PROC: 3E033NZ Introduction of Analgesics, Hypnotics, Sedatives into Peripheral Vein, Percutaneous Approach (ICD-10-PCS; principal; 2024-04-28)
PROC: 3E0337Z Introduction of Electrolytic and Water Balance Substance into Peripheral Vein, Percutaneous Approach (ICD-10-PCS; 2024-04-28)
DX: K57.92 Diverticulitis of intestine, part unspecified, without perforation or abscess without bleeding (principal); K59.00 Constipation, unspecified; R10.31 Right lower quadrant pain; Z20.822 Contact with and (suspected) exposure to COVID-19
CPT/HCPCS: 0241U-QW; 36415; 74177-TC; 80053; 81003; 83690; 85025; 87086; 99285-25; J0131; Q9967